=== PATIENT | male | born 1960 | race Caucasian/White ===

== ENCOUNTER 2025-04-24 05:42 | Inpatient (IN) | payer OTHER ==
[~2025-04-24] VITALS: Ht 167.6 cm; Wt 104.3 kg
[2025-04-24] VITALS (8 sets, daily range): BP systolic 122–129; BP diastolic 71–75; PULSE 60–74; RESP 18–20; TEMP 96.7–97.9; O2SAT 95–100
[~2025-04-24 05:42] MED LIST: CEPHALEXIN500 MG PO; LISINOPRIL5 MG PO; LUNESTA3 MG PO; OXYBUTYNIN CHLOR5 MG PO; TYLENOL325 MG PO
[2025-04-24 06:33] LABS: BASOPHILS % 0.4 % (0.0-1.0); EOSINOPHILS % 2.7 % (0.0-6.0); LYMPHOCYTES % 30.2 % (18.0-39.1); MONOCYTES % 6.3 % (4.4-11.3); NEUTROPHILS % 60.1 % (38.7-80.0); RED CELL DISTRIBUTION WIDTH 12.9 % (11.7-14.4)
[2025-04-24] MEDS ORDERED: PROPOFOL IV EMULSION 10 MG/ML 20 ML VIAL ONE ×3 (06:40→07:52)
[2025-04-24] MEDS ORDERED: LIDOCAINE HCL 2% LOCAL INJ 5 ML SDV VIAL INJ ONE (06:40)
[2025-04-24 06:58] LABS: EST GLOMERULAR FILTRATION RATE 99.0 ML/MIN (>=60)
[2025-04-24] MEDS: CEFTRIAXONE 1 GM VIAL ONE (07:09)
[2025-04-24] MEDS: SODIUM CHLORIDE 0.9% 1000ML 1,000 ML ONE (07:09)
[2025-04-24] MEDS: GENTAMICIN 80MG/NS 100 ML 200 ML IV ONE (07:10)
[2025-04-24] MEDS ORDERED: FENTANYL CITRATE/PF 100MCG/2 ML INJ ONE ×2 (07:14→07:44)
[2025-04-24] MEDS ORDERED: SEVOFLURANE INHAL SOLN 250 ML PEN BTL ONE (07:24)
[2025-04-24] MEDS ORDERED: ONDANSETRON HCL INJ 2MG/ML 2ML 2 MG/ML VIAL ONE (07:24)
[2025-04-24] MEDS ORDERED: DEXAMETHASONE SOD PHOS INJ 4 MG/ML SDV ONE (07:24)
[2025-04-24] MEDS ORDERED: ACETAMINOPHEN 1000 MG/100 ML 100 ML IV ONE (07:24)
[2025-04-24] MEDS ORDERED: DIPHENHYDRAMINE HCL 25 MG CAP PO PRN (07:30)
[2025-04-24] MEDS: FENTANYL CITRATE/PF 100MCG/2 ML INJ ONE (09:40)
[2025-04-24] MEDS: PHENAZOPYRIDINE HCL 100 MG TAB ONE (09:40)
[2025-04-24 09:42] LABS: BASOPHILS % 0.3 % (0.0-1.0); EOSINOPHILS % 1.0 % (0.0-6.0); LYMPHOCYTES % 12.7 % (18.0-39.1); MONOCYTES % 3.1 % (4.4-11.3); NEUTROPHILS % 82.5 % (38.7-80.0); RED CELL DISTRIBUTION WIDTH 13.1 % (11.7-14.4)
[2025-04-24] MEDS: ACETAMINOPHEN/CODEINE 300MG - 30MG TAB ONE (10:15)
[2025-04-24 10:28] LABS: EST GLOMERULAR FILTRATION RATE 98.0 ML/MIN (>=60)
[2025-04-24] MEDS: HYDROMORPHONE 1MG/1ML INJ ONE (10:30)
[2025-04-24] MEDS: SODIUM CHLORIDE 0.9% 1000ML 1,000 ML IV SCH (12:52)
[2025-04-24] MEDS: SENNA-S TABLET PO SCH (12:53)
[2025-04-24] MEDS: PHENAZOPYRIDINE HCL 100 MG TAB PO PRN (12:53)
[2025-04-24] MEDS: ONDANSETRON HCL INJ 2MG/ML 2ML 2 MG/ML VIAL IV PRN (13:01)
[2025-04-24] MEDS: ACETAMINOPHEN 1000 MG/100 ML IV PRN (14:04)
[2025-04-24] MEDS: ACETAMINOPHEN/CODEINE 300MG - 30MG TAB PO PRN (17:50)
[2025-04-25] VITALS (9 sets, daily range): BP systolic 98–154; BP diastolic 51–81; PULSE 55–70; RESP 17–20; TEMP 97.1–99.2; O2SAT 96–100
[2025-04-25 06:25] LABS: BASOPHILS % 0.2 % (0.0-1.0); EOSINOPHILS % 0.1 % (0.0-6.0); LYMPHOCYTES % 19.6 % (18.0-39.1); MONOCYTES % 7.1 % (4.4-11.3); NEUTROPHILS % 72.7 % (38.7-80.0); RED CELL DISTRIBUTION WIDTH 13.0 % (11.7-14.4)
[2025-04-25 06:50] LABS: EST GLOMERULAR FILTRATION RATE 104.0 ML/MIN (>=60)
[2025-04-25] MEDS ORDERED: ACETAMINOPHEN 325 MG TAB PO PRN (10:30)
[2025-04-25] MEDS: OXYBUTYNIN CHLORIDE 5 MG TAB PO PRN (11:35)
[2025-04-25] MEDS: LISINOPRIL 2.5 MG TAB PO SCH (21:13)
[2025-04-26] VITALS (8 sets, daily range): BP systolic 111–137; BP diastolic 60–71; PULSE 59–70; RESP 17–21; TEMP 97.4–98.6; O2SAT 98–100
[2025-04-26] MEDS ORDERED: HYDROCODON-ACE1 EAC9 PO (00:45)
[2025-04-26] MEDS: HYDROCODONE/APAP 10MG-325MG TAB PO PRN (06:17)
[2025-04-26 06:23] LABS: BASOPHILS % 0.2 % (0.0-1.0); EOSINOPHILS % 1.6 % (0.0-6.0); LYMPHOCYTES % 34.0 % (18.0-39.1); MONOCYTES % 7.8 % (4.4-11.3); NEUTROPHILS % 56.0 % (38.7-80.0); RED CELL DISTRIBUTION WIDTH 13.0 % (11.7-14.4)
[2025-04-26 07:01] LABS: EST GLOMERULAR FILTRATION RATE 101.0 ML/MIN (>=60)
[2025-04-26] MEDS ORDERED: TEMAZEPAM 15 MG CAP PO PRN (08:00)
[2025-04-27 00:16] VITALS: BP 108/66; PULSE 63; RESP 20; TEMP 98.7; O2SAT 99
[2025-04-27 04:20] VITALS: BP 119/65; PULSE 56; RESP 18; TEMP 98; O2SAT 100
[2025-04-27 06:26] LABS: EST GLOMERULAR FILTRATION RATE 102.0 ML/MIN (>=60)
[2025-04-27 06:30] LABS: BASOPHILS % 0.3 % (0.0-1.0); EOSINOPHILS % 4.2 % (0.0-6.0); LYMPHOCYTES % 34.3 % (18.0-39.1); MONOCYTES % 7.6 % (4.4-11.3); NEUTROPHILS % 53.3 % (38.7-80.0); RED CELL DISTRIBUTION WIDTH 12.8 % (11.7-14.4)
[2025-04-27 07:36] VITALS: BP 126/75; PULSE 53; RESP 18; TEMP 97.4; O2SAT 97
[2025-04-27 08:30] VITALS: BP 126/75; PULSE 53; RESP 18; TEMP 97.4; O2SAT 97
[2025-04-27 11:44] VITALS: BP 132/79; PULSE 67; RESP 19; TEMP 97.4; O2SAT 98
[2025-04-27 15:29] VITALS: BP 132/79; PULSE 68; RESP 19; TEMP 98.1; O2SAT 98
== END 2025-04-27 16:40 | disposition home or self-care (01) | DRG 713 ==
LOC: OR 05:42 → PACU V 09:03 → MED/SURG3 11:48
PROVIDERS: ADMIT Internal Medicine; ATTEND Internal Medicine
PROC: BT161ZZ Fluoroscopy of Right Ureter using Low Osmolar Contrast (ICD-10-PCS; 2025-04-24)
PROC: 0DJD7ZZ Inspection of Lower Intestinal Tract, Via Natural or Artificial Opening (ICD-10-PCS; 2025-04-24)
PROC: 0VB08ZZ Excision of Prostate, Via Natural or Artificial Opening Endoscopic (ICD-10-PCS; principal; 2025-04-24 07:13)
PROC: 0T9B70Z Drainage of Bladder with Drainage Device, Via Natural or Artificial Opening (ICD-10-PCS; 2025-04-24 07:13)
DX: N40.1 Benign prostatic hyperplasia with lower urinary tract symptoms (principal); N13.8 Other obstructive and reflux uropathy; N39.0 Urinary tract infection, site not specified; R31.0 Gross hematuria; R33.8 Other retention of urine; R39.15 Urgency of urination; I10 Essential (primary) hypertension; E66.9 Obesity, unspecified; Z68.37 Body mass index [BMI] 37.0-37.9, adult; G47.00 Insomnia, unspecified; Z87.440 Personal history of urinary (tract) infections; Z88.8 Allergy status to other drugs, medicaments and biological substances; Z88.1 Allergy status to other antibiotic agents
CPT/HCPCS: 36415; 74420; 80048; 82948; 83735; 85025; 87086; 87186; 88305; 93005; 94799; C1758; J0692; J0696; J1100; J1171; J1580; J2003; J2405; J7030